=== PATIENT | female | born 1960 ===

== ENCOUNTER 2017-09-14 06:01 | Day surgery (SDC) | payer OTHER ==
[2017-09-14 06:48] VITALS: BMI 25.4
[2017-09-14] MEDS ORDERED: Propofol 10 mg/ml Inj (20 ML) ONE ×5 (07:57→09:08)
[2017-09-14] MEDS ORDERED: Lactated Ringer's 500 ML IV SCH (08:15)
[2017-09-14] MEDS ORDERED: Lidocaine Hydrochloride 5 ML INJ ONE (08:16)
[2017-09-14 09:35] VITALS: TEMP 98.4
[2017-09-14 10:38] VITALS: BP 108/82; PULSE 68; RESP 15; O2SAT 99
== END 2017-09-14 10:35 | disposition home or self-care (01) ==
LOC: C.ENDO 06:01
PROVIDERS: ATTEND Internal Medicine
DX: Z12.11 Encounter for screening for malignant neoplasm of colon (principal); D12.2 Benign neoplasm of ascending colon; D12.5 Benign neoplasm of sigmoid colon; D12.3 Benign neoplasm of transverse colon; D12.4 Benign neoplasm of descending colon; K62.1 Rectal polyp; K64.8 Other hemorrhoids; Z86.010 Personal history of colon polyps
CPT/HCPCS: 45380; 45385; 88305; J2704; J7120